=== PATIENT | female | born 1990 | race American Indian/Alaskan Native ===

== ENCOUNTER 2017-07-07 13:09 | Emergency (ER) | payer SELFPAY ==
[2017-07-07 13:20] VITALS: BP 135/75
[2017-07-07] MEDS ORDERED: MOTRIN PO ONE (13:43)
[2017-07-07] MEDS ORDERED: BOOSTRIX IM ONE (13:44)
[2017-07-07] MEDS ORDERED: XYLOCAINE 2%/ EPI 1:200,000 INFILTRATI ONE (13:44)
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
== END 2017-07-07 15:17 | disposition home or self-care (01) ==
LOC: ED 13:09
DX: S61.511A Laceration without foreign body of right wrist, initial encounter (principal); R51 Headache; S00.83XA Contusion of other part of head, initial encounter; J45.909 Unspecified asthma, uncomplicated; F17.200 Nicotine dependence, unspecified, uncomplicated; W20.8XXA Other cause of strike by thrown, projected or falling object, initial encounter; Y93.89 Activity, other specified; Y92.89 Other specified places as the place of occurrence of the external cause; Y99.8 Other external cause status
CPT/HCPCS: 70450; 90471; 90715